=== PATIENT | female | born 2000 | race Hispanic/Latino ===

== ENCOUNTER 2022-03-10 11:46 | Emergency (ER) | payer OTHER ==
[2022-03-10] MEDS ORDERED: methylPREDNISolone Acetate 40 mg/ml Vial ONE (12:12)
== END 2022-03-10 12:33 | disposition home or self-care (01) ==
LOC: MADERS 11:46
DX: T78.40XA Allergy, unspecified, initial encounter (principal)
CPT/HCPCS: 96372; 99283; J1030